=== PATIENT | male | born 1950 | race Caucasian/White ===

== ENCOUNTER → 2020-12-27 | Outpatient (CLI) | payer OTHER | LOC: EMI 09:42 | DX: G35 Multiple sclerosis (principal) | CPT/HCPCS: 70551 ==

== ENCOUNTER → 2021-12-13 | Outpatient (CLI) | payer OTHER | LOC: EMI 12:01 | DX: G35 Multiple sclerosis (principal) | CPT/HCPCS: 70551 ==